=== PATIENT | female | born 1975 | race Caucasian/White ===

== ENCOUNTER → 2016-05-26 | Outpatient (CLI) | payer BC ==
[~2016-05-26] MED LIST: DOCU-94 PO; PRENTAB26 PO
[2016-05-26 11:56] LABS: URINE APPEARANCE CLOUDY (CLEAR); URINE BILIRUBIN NEG (NEG); URINE COLOR YELLOW; URINE EPITHELIAL CELL AUTO >30 /lpf (0-5); URINE NITRITE NEG (NEG); URINE PH 6.5 (4.5-7.5); URINE SPECIFIC GRAVITY 1.022 (1.000-1.030); UROBILINOGEN NEG (NEG)
[2016-05-26 12:07] LABS: MANUAL MICROSCOPIC REQUIRED? NO; REVIEW REQ? YES
== END | disposition home or self-care (01) ==
LOC: C.LABSPEC 11:23
PROVIDERS: ATTEND Obstetrics & Gynecology
DX: O09.01 Supervision of pregnancy with history of infertility, first trimester (principal)

== ENCOUNTER → 2016-06-23 | Outpatient (CLI) | payer BC ==
[2016-06-23 13:51] LABS: GTGD 50 Grams
[2016-06-26 15:30] LABS: AFP CONCENTRATION 47.6 NG/ML; AFP MULTIPLE OF MEDIAN 1.41; AFPTS GESTATIONAL AGE 16.6 WEEKS; AFPTS INSULIN DEP DIABETIC? NO; AFPTS MATERNAL WT 159 LBS; ALPHA-FETOPROTEIN RACE CAUCASIAN=W; HISTORY OF NTD NO; REPEAT SAMPLE? NO
== END | disposition home or self-care (01) ==
LOC: C.LAB1850 10:08
PROVIDERS: ATTEND Obstetrics & Gynecology
DX: O09.02 Supervision of pregnancy with history of infertility, second trimester (principal); O09.522 Supervision of elderly multigravida, second trimester

== ENCOUNTER → 2016-09-08 | Outpatient (CLI) | payer BC ==
[2016-09-08 10:22] LABS: HEMATOCRIT 37.4 % (37-47)
[2016-09-08 13:06] LABS: URINE APPEARANCE CLEAR (CLEAR); URINE BILIRUBIN NEG (NEG); URINE COLOR DK YELLOW; URINE EPITHELIAL CELL AUTO 20-30 /lpf (0-5); URINE NITRITE NEG (NEG); URINE PH 5.5 (4.5-7.5); URINE SPECIFIC GRAVITY 1.028 (1.000-1.030); UROBILINOGEN NEG (NEG)
[2016-09-08 13:18] LABS: MANUAL MICROSCOPIC REQUIRED? NO; REVIEW REQ? NO
[2016-09-08 14:02] LABS: GTGD 50 Grams
== END | disposition home or self-care (01) ==
LOC: C.LAB1850 08:42
PROVIDERS: ATTEND Obstetrics & Gynecology
DX: O09.523 Supervision of elderly multigravida, third trimester (principal); Z3A.00 Weeks of gestation of pregnancy not specified

== ENCOUNTER → 2016-11-06 | Outpatient (CLI) | payer BC | END | disposition home or self-care (01) | LOC: C.LABSPEC 14:15 | PROVIDERS: ATTEND Obstetrics & Gynecology | DX: O09.523 Supervision of elderly multigravida, third trimester (principal); Z3A.00 Weeks of gestation of pregnancy not specified ==

== ENCOUNTER 2016-12-08 18:41 | Inpatient (IN) | payer BC ==
[~2016-12-08] VITALS: Ht 180.3 cm; Wt 85.0 kg
[~2016-12-08 18:41] MED LIST changes: -DOCU-94 PO
[2016-12-08] MEDS ORDERED: LACTATED RINGER'S 1000ML 1,000 ML IV SCH (19:19)
[2016-12-08] MEDS ORDERED: LACTATED RINGER'S 1000ML 1,000 ML IV PRN (19:19)
[2016-12-08 19:53] LABS: HEMATOCRIT 35.9 % (37-47); MEAN CELL VOLUME 93.5 fL (80-100); MEAN CORPUSCULAR HEMOGLOBIN 32.8 pg (25-34); MEAN CORPUSCULAR HGB CONC 35.1 g/dl (32-36); MEAN PLATELET VOLUME 10.1 fL (7.4-10.4); PLATELET COUNT 193 K/uL (130-400); RED BLOOD COUNT 3.84 M/uL (4.2-5.4)
[2016-12-08] MEDS ORDERED: DOCU-94 PO (20:37)
[2016-12-08 20:40] VITALS: Ht 180.3 cm; Wt 85.0 kg
[2016-12-08] MEDS ORDERED: BUPIVACAINE 0.25% 30 ML VIAL ONE (20:54)
[2016-12-08] MEDS ORDERED: EpHEDrine SULFATE INJ 50 MG/ML AMP ONE (20:54)
[2016-12-08] MEDS ORDERED: FENTANYL CITRATE INJ 50 MCG/1 ML 2 ML VIAL ONE (20:55)
[2016-12-08] MEDS ORDERED: FENTANYL 2MCG/ML ROPIV 1.25MG/ML 100ML BAG EPI ONE (20:55)
[2016-12-08] MEDS ORDERED: LACTATED RINGER'S 1000ML 500 ML IV PRN (21:31)
[2016-12-08] MEDS ORDERED: FENTANYL 2MCG/ML ROPIV 1.25MG/ML 100ML BAG EPI PRN (21:45)
[2016-12-08] MEDS ORDERED: EpHEDrine SULFATE INJ 50 MG/ML AMP IV PRN (21:45)
[2016-12-08] MEDS ORDERED: NALOXONE HCL INJ 0.4 MG/1 ML VIAL/CARP IV PRN (21:45)
[2016-12-08] MEDS ORDERED: OXYTOCIN 30 UNITS/500ML NSS IV ONE (21:57)
[2016-12-08] MEDS ORDERED: METHYLERGONOVINE MALEATE 0.2 MG/ML AMP ONE (22:09)
[2016-12-08] MEDS ORDERED: OXYCODONE/ACETAMINOPHEN 5-325 TAB PO PRN (22:30)
[2016-12-08] MEDS ORDERED: METHYLERGONOVINE MALEATE 0.2 MG/ML AMP IM ONE (22:30)
[2016-12-08] MEDS ORDERED: BENZOCAINE 20% AER SPR 82.5 GM CAN EXT PRN (22:30)
[2016-12-08] MEDS ORDERED: ACETAMINOPHEN 325 MG TAB PO PRN (22:30)
[2016-12-08] MEDS ORDERED: OXYTOCIN 30 UNITS/500ML NSS IV PRN (22:30)
[2016-12-08] MEDS ORDERED: SUPERCREAM 0.870 % 15GM JAR EXT PRN (22:30)
[2016-12-08] MEDS ORDERED: HYDROCORTISONE ACETATE 25 MG SUPP PR PRN (22:30)
[2016-12-08] MEDS ORDERED: DIPHTHERIA/TETANUS/PERTUSSIS 0.5 ML SYR/VIAL IM. ONE (22:30)
[2016-12-08] MEDS ORDERED: ACETAMINOPHEN/CODEINE 300/30MG TAB PO PRN ×2 (22:30)
[2016-12-08] MEDS ORDERED: LANOLIN OINT EXT PRN ×2 (22:30)
--- NOTE | 2016-12-08 22:54 | Anesthesia Procedure Note ---
Anesthesia Epidural Removal Nt Date & Time Dec 08, 2016 at 22:54 Notes Mental Status: alert / awake / arousable, participated in evaluation Nausea / Vomiting: adequately controlled Pain: adequately controlled Airway Patency, RR, SpO2: stable & adequate BP & HR: stable & adequate Hydration State: stable & adequate Neuraxial Anesthesia: was administered Anesthetic Complications: no major complications apparent, pt satisfied with anesthetic care Epidural: removed without complications, with tip intact
[2016-12-09] VITALS (7 sets, daily range): BP systolic 112–135; BP diastolic 70–83; PULSE 54–69; TEMP 36.6–37.1; O2SAT 96–98
--- NOTE | 2016-12-09 01:23 | DELIVERY SUMMARY ---
DATE OF OPERATION: 12/08/2016 PREOPERATIVE DIAGNOSES: 1. Intrauterine at 40 and 4/7 weeks. 2. Active labor. POSTOPERATIVE DIAGNOSES: Same. PROCEDURES: 1. Epidural anesthesia. 2. Amniotomy. 3. Normal spontaneous delivery. 4. Second degree perineal laceration with repair. SURGEON: Dr. Nath. ANESTHESIA: Epidural. ESTIMATED BLOOD LOSS: 400 mL. PROCEDURE IN DETAIL: The patient presented to labor and delivery in early active labor. She was 4 cm dilated, she walked around. She was 4-5 cm dilated when she underwent an epidural anesthetic. Shortly after the epidural was administered and the patient was comfortable, there was a deceleration to the 80s with some early decelerations with contractions. The patient was checked. Amniotomy was performed for clear fluid and she was found to be complete, complete and +2 station. She was prepped for delivery. She pushed over 2 contractions to deliver a viable female infant in JUDY presentation. There was a tight nuchal cord x1 that was clamped and cut on the perineum and then the rest of the was delivered without difficulty. The nose and mouth were bulb suctioned. The cried and so was placed on the abdomen for drying and attention. Cord blood and segment were obtained. Placenta was delivered spontaneously intact with a 3-vessel cord. Cervix, sulci, and rectum were examined and found to be intact although there was cervix descensus to the introitus. A second degree perineal laceration was repaired in a normal standard fashion. Hemostasis was obtained with dilute Pitocin, fundal massage and IM Methergine. Estimated blood loss was 400 mL. Mother and baby doing well at the end of the delivery. Apgars 6 and 9. I attest to the content of the Intraoperative Record and any orders documented therein. Any exception s are noted below.
[2016-12-09] MEDS: IBUPROFEN 600 MG TAB PO PRN ×5 (01:34→23:29)
--- NOTE | 2016-12-09 07:46 | Progress Note ---
Subjective Dec 09, 2016. Subjective conversation w/ patient, physical exam, lab review Ambulation: ambulating normally Voiding: no voiding problems Passing Gas: Yes Diet Tolerance: Regular Diet Lochia: Small Feeding Type: Breast Feeding Objective Vital Signs Date Time Temp Pulse Resp B/P (MAP) Pulse Ox O2 Delivery O2 Flow Rate FiO2 12/09/16 03:55 37.1 61 18 121/74 (90) 96 Room Air 12/09/16 00:30 98 Room Air 12/09/16 00:30 36.8 69 20 129/74 (92) 98 Room Air Physical Exam General Appearance: WELL-APPEARING, WD/WN, NO APPARENT DISTRESS Respiratory/Chest: lungs clear, normal breath sounds Cardiovascular: regular rate, rhythm Abdomen: non tender, soft Fundus: Firm, Non-Tender, Relation to Umbilicus (at u) Extremities: non-tender, normal inspection, + pedal edema (tr) Laboratory Results Last 24 Hours Test 12/08/16 19:38 12/09/16 06:55 White Blood Count 8.80 K/uL Red Blood Count 3.84 M/uL Hemoglobin 12.6 g/dL Hematocrit 35.9 % Mean Corpuscular Volume 93.5 fL Mean Corpuscular Hemoglobin 32.8 pg Mean Corpuscular Hemoglobin Concent 35.1 g/dl RDW Standard Deviation 43.7 fL RDW Coefficient of Variation 12.8 % Platelet Count 193 K/uL Mean Platelet Volume 10.1 fL Assessment and Plan Post- Day#: 1 Continue Routine Care: Doing well. Routine care.
[2016-12-09] MEDS: PRENATAL VITAMIN TAB PO SCH (08:05)
[2016-12-09] MEDS: DOCUSATE SODIUM 100 MG CAP PO SCH ×2 (08:05→19:49)
--- NOTE | 2016-12-09 21:25 | Discharge Instructions ---
Discharge Instructions Date of Service Dec 09, 2016. Admission Reason for Admission: Check Labor Discharge Discharge Diagnosis / Problem: normal delivery Discharge Goals Goal(s): Routine recovery after delivery Medications Continue Dispensed Medications: supercream, dermaplast, tucks, lansinoh Activity Recommendations Activity Limitations: per Instructions/Follow-up section . Instructions / Follow-Up Instructions / Follow-Up ACTIVITY RECOMMENDATIONS: * Gradual return to full activity over the next 2-3 weeks. * No lifting - nothing heavier than baby over the next 2-3 weeks. * Do not engage in vigorous exercise, sexual activity or sports until cleared by your physician. * Do not drive or operate any motorized equipment until cleared by your physician. * You may shower/bathe daily. MEDICATIONS: For discomfort or pain, you may use Acetaminophen (Tylenol), Ibuprofen (Advil), or Naproxen (Aleve) following the package directions. For constipation you may use Colace following the package directions. BREAST CARE: If you are not breast feeding: * Wear a supportive bra 24 hours a day for one to two weeks. * Avoid stimulating your breasts and nipples as much as possible during the first few weeks after delivery. * When taking a shower, have the warm water hit your back, not breasts. * When your breasts feel full, apply ice packs. Usually three to four times a day helps ease the discomfort. * Take a mild pain medication (Tylenol / Motrin) when you are uncomfortable. If breast feeding: * Use breast milk to lubricate nipples. Lansinoh cream may be used for sore nipples. You do not need to remove cream prior to breast feeding. If using a different brand of cream, check the label for directions regarding removal of cream prior to nursing. * Wear a supportive bra. * If having problems with breasts or breast feeding, call a sql consultant or your health care provider. EPISIOTOMY CARE: After delivery, if you have an episiotomy (stitches), the following steps will ease discomfort and aid healing. * For the first 24 hours after delivery, place ice packs next to your episiotomy to help reduce swelling. * After the first 24 hour-period, sitz baths, either portable or in the tub, are suggested. A shower with a shower arm sprayed over the episiotomy may be comforting. * Eloise care should be done after each voiding and bowel movement. Squirt warm water from a plastic bottle over the perineum (region of the body between the anus and urinary opening) and pat dry. * Use Dermoplast to ease discomfort. Shake container. [place] directly over the episiotomy. Place a Tucks on a clean sanitary pad next to your episiotomy. SPECIAL CARE INSTRUCTIONS: When you are discharged from the hospital, it is important for you to follow the instructions listed below: * During the first week at home, you should be able to care for yourself and your baby. In addition, the usual light household activities are encouraged. * Limit your activities to the way you feel. Do not try to clean the house or move furniture. Be sensible. * If you actively engage in sports and have done so up until the time of your delivery, you may resume these activities as soon as you feel able. This may take up to one month or even longer. Use good judgment. * Continue to take your vitamins for at least six weeks after the of your baby. * Your diet need not be limited unless you were on a special diet before your delivery. Breast-feeding mothers need around 2500 calories per day and at least 64-80 ounces of fluid per day (8 to 10 glasses). * You should eat foods from the four major food groups. Crash diets or fad diets are to be avoided. Eating lean meats, fresh fruits and vegetables, low-fat dairy products, high fiber foods and a regular exercise program, will help you get back to your pre- weight without putting your health at risk. * Constipation is sometimes a problem after delivery. Take a mild laxative as needed. If breast feeding, Milk of Magnesia is acceptable to use. You may use a suppository or Fleets enema if no episiotomy. * A daily shower or tub bath is suggested. Be sure to thoroughly and gently dry the perineum. * A bloody vaginal discharge will usually continue until around four weeks post . A small amount of bleeding may continue for as long as six weeks. Vaginal discharge changes from the bright red bleeding after delivery to pink then brownish and finally yellowish-pink before becoming white and disappearing. * Bleeding may increase with activity. Your first period may come in 4-8 weeks. If you are breast feeding, your period may be delayed even longer. * [employer] (sex) can begin whenever both you and your partner feel comfortable and do not have any form of genital infection. It is recommended that you wait at least six weeks for internal and external healing to occur. If you have questions, please talk to your health care practitioner. A condom should be used to prevent infection and . * Foreplay, gentle intercourse and lubrication is very important the first several times to prevent pain. A water-based lubricant such as K-Y jelly or Astroglide may be used. * If you have RH negative blood and your baby is RH positive, you will receive RHOGAM by injection prior to discharge. The nurse will give you a card to keep with you that has the date and place that you received RHOGAM after delivery. * During your care, you had a Rubella screen done to check for the presence of rubella antibodies in your blood. If your test was negative, you will receive a Rubella vaccine prior to discharge. This vaccine may cause a fever, soreness at the injection site and flu-like symptoms. If these symptoms persist, notify your health care practitioner. is not advised for one month after a Rubella vaccine. * Verbalizes understanding of car seat law as reviewed with patient nursing. * Car Seat hand-out given and reviewed with patient by nursing. * Shaken baby information reviewed with patient by nursing. Call you doctor if: * Heavy bleeding (saturating several pads an hour) or passing clots the size of your fist. * A fever >101 degrees F (38.3 degrees C) on two occasions four hours apart and /or chills. * Unusual pain in the pelvic or vaginal areas. * "Baby Blues" lasting longer than two weeks. If you have any questions or concerns, call your health care practitioner at . FOLLOW UP VISIT: * Please call the office at to schedule a 6 week examination. It is important you keep this appointment. It is important for you to make arrangements for either yearly or twice yearly check-ups thereafter. Current Hospital Diet Patient's current hospital diet: Regular OB Diet Discharge Diet Recommended Diet: Regular OB Diet Pending Studies Studies pending at discharge: no Medical Emergencies . Who to Call and When: Medical Emergencies: If at any time you feel your situation is an emergency, please call 911 immediately. . Non-Emergent Contact Non-Emergency issues call your: F[employer] Rental Clerk . . "Provider Documentation" section prepared by Leigh Ann Felipe. . VTE Core Measure Inpt VTE Proph given/why not?: Treatment not indicated
[2016-12-10 07:29] VITALS: BP 114/75; PULSE 58; TEMP 36.7; O2SAT 96
[2016-12-10] MEDS: PRENATAL VITAMIN TAB PO SCH (08:13)
[2016-12-10] MEDS: DOCUSATE SODIUM 100 MG CAP PO SCH (08:13)
[2016-12-10] MEDS: IBUPROFEN 600 MG TAB PO PRN (08:16)
--- NOTE | 2016-12-10 08:47 | Progress Note ---
Subjective Dec 10, 2016. Subjective conversation w/ patient, physical exam Ambulation: ambulating normally Voiding: no voiding problems Passing Gas: Yes Diet Tolerance: Regular Diet Lochia: Small Review of Systems Constitutional: No fever, No chills, No sweats, No weight loss, No weakness, No fatigue, No problem reported Cardiac: No chest pain, No orthopnea, No PND, No edema, No claudication, No palpitations, No problem reported Breast: No see HPI, No breast lump, No change in shape, No nipple discharge, No breast pain, No problem reported Female : No see HPI, No dysuria, No urinary frequency, No hematuria, No incontinence, No abnormal vaginal bleeding, No vaginal discharge, No problem reported Objective Vital Signs Date Time Temp Pulse Resp B/P (MAP) Pulse Ox O2 Delivery O2 Flow Rate FiO2 12/10/16 07:29 36.7 58 16 114/75 (88) 96 Room Air 12/09/16 23:05 36.6 61 18 119/76 (90) Room Air 12/09/16 23:05 Room Air 12/09/16 20:08 36.9 69 18 135/83 (100) Room Air 12/09/16 16:00 36.8 56 18 116/77 (90) 97 Room Air 12/09/16 16:00 Room Air 12/09/16 11:50 36.7 56 20 112/71 (85) 97 Room Air Physical Exam General Appearance: WELL-APPEARING, NO APPARENT DISTRESS Abdomen: non tender, soft Fundus: Firm, Non-Tender, Relation to Umbilicus (1 below U) Assessment and Plan Post- Day#: 2 Continue Routine Care: discharge to home follow up in 6 weeks
[2016-12-10 11:20] VITALS: BP_DIAS 75; PULSE 58; TEMP 36.7
== END 2016-12-10 11:20 | disposition home or self-care (01) | DRG 775 ==
LOC: C.OPB 18:41 → C.LD 18:41 → C.OPB 19:20 → C.LD 19:20 → C.OBG 12-09 00:41
PROVIDERS: ADMIT Obstetrics & Gynecology; ATTEND Obstetrics & Gynecology
PROC: 10E0XZZ Delivery of Products of Conception, External Approach (ICD-10-PCS; principal; 2016-12-08)
PROC: 0KQM0ZZ Repair Perineum Muscle, Open Approach (ICD-10-PCS; principal; 2016-12-08)
DX: O48.0 Post-term pregnancy (principal); O76 Abnormality in fetal heart rate and rhythm complicating labor and delivery; O69.1XX0 Labor and delivery complicated by cord around neck, with compression, not applicable or unspecified; O70.1 Second degree perineal laceration during delivery; O34.523 Maternal care for prolapse of gravid uterus, third trimester; Z3A.40 40 weeks gestation of pregnancy; Z37.0 Single live birth

== ENCOUNTER → 2017-01-23 | Outpatient (CLI) | payer BC ==
[~2017-01-23] MED LIST changes: +DOCU-94 PO
== END | disposition home or self-care (01) ==
LOC: C.PAPS 14:21
PROVIDERS: ATTEND Obstetrics & Gynecology
DX: Z01.419 Encounter for gynecological examination (general) (routine) without abnormal findings (principal)